=== PATIENT | male | born 1970 | race Native Hawaiian/Other Pacific Islander ===

== ENCOUNTER 2017-07-06 11:53 | Observation (INO) | payer OTHER ==
[2017-07-06] MEDS ORDERED: RX INFO: IV CONTRAST WAS GIVEN 1 EACH MISC MISCELLANE PRN (12:12)
[2017-07-06 12:18] LABS: Glucose,Whole Blood 278 mg/dL (75-99)
[2017-07-06 12:35] LABS: Basophils # (A) 0.1 k/uL (0-0.2); Basophils % (A) 1 %; Eosinophils # (A) 0.3 k/uL (0-0.7); Eosinophils % (A) 5 %; HCT 52.4 % (39.0-53.0); HGB 17.3 gm/dL (13.0-17.5); Lymphocytes # (A) 1.4 k/uL (1.0-4.8); Lymphocytes % (A) 23 %; MCH 27.1 pg (25.0-35.0); MCV 82.1 fL (80.0-100.0); Mean Platelet Volume 8.3; Monocytes # (A) 0.3 k/uL (0-1.0); Monocytes % (A) 6 %; Neutrophils # (A) 3.7 k/uL (1.3-7.7); Neutrophils % (A) 64 %; Platelet Count 158 k/uL (150-450); RBC 6.38 m/uL (4.30-5.90); RDW 15.3 % (11.5-15.5); WBC 5.8 k/uL (3.8-10.6)
[2017-07-06 12:45] LABS: ALT 114 U/L (21-72); AST 64 U/L (17-59); Albumin 4.2 g/dL (3.5-5.0); Alkaline Phosphatase 108 U/L (38-126); Anion Gap 12 mmol/L; Blood Urea Nitrogen 15 mg/dL (9-20); Calcium 9.6 mg/dL (8.4-10.2); Carbon Dioxide 24 mmol/L (22-30); Chloride 101 mmol/L (98-107); Glucose 277 mg/dL (74-99); Potassium 4.4 mmol/L (3.5-5.1); Sodium 137 mmol/L (137-145); Total Bilirubin 0.7 mg/dL (0.2-1.3); Total Protein 7.6 g/dL (6.3-8.2)
--- NOTE | 2017-07-06 12:48 | ED ---
General Adult HPI - General Chief complaint: Neuro Symptoms/Deficit Stated complaint: Facial numbness Time Seen by Provider: 07/06/17 12:06 Source: patient, RN notes reviewed Mode of arrival: wheelchair Limitations: no limitations - History of Present Illness Initial comments: 46-year-old male history diabetes presents for evaluation of right-sided facial numbness and weakness. Patient states he woke with these symptoms, but work as usual. Patient states he also had some right-sided neck pain which was sharp in nature and right shoulder pain. No central chest pain. No difficulty breathing. No nausea or vomiting. Patient has had some diaphoresis which is typical for him. Symptoms failed to improve throughout the morning, he presented for evaluation. Past medical history includes diabetes and obesity. - Related Data Home Medications Medication Instructions Recorded Confirmed Insulin Glargine [Lantus] 35 unit SQ DAILY 07/06/17 07/06/17 glipiZIDE [Glucotrol] 5 mg PO AC-BID 07/06/17 07/06/17 metFORMIN HCL [metFORMIN HCL ER] 1,000 mg PO AC-BID 07/06/17 07/06/17 Allergies Allergy/AdvReac Type Severity Reaction Status Date / Time guaifenesin AdvReac Rash/Hives Verified 07/06/17 13:16 Review of Systems ROS Statement: Those systems with pertinent positive or pertinent negative responses have been documented in the HPI. ROS Other: All systems not noted in ROS Statement are negative. Past Medical History Past Medical History: Diabetes Mellitus, Hyperlipidemia History of Any Multi-Drug Resistant Organisms: None Reported Past Surgical History: Orthopedic Surgery Additional Past Surgical History / Comment(s): left shoulder Past Psychological History: No Psychological Hx Reported Smoking Status: Never smoker Past Alcohol Use History: Occasional Past Drug Use History: None Reported General Exam Limitations: no limitations General appearance: alert, in no apparent distress Head exam: Present: atraumatic, normocephalic Eye exam: Present: normal appearance, PERRL, EOMI ENT exam: Present: normal exam, TM's normal bilaterally, normal external ear exam Neck exam: Present: normal inspection. Absent: tenderness, meningismus Respiratory exam: Present: normal lung sounds bilaterally. Absent: respiratory distress, wheezes, rales Cardiovascular Exam: Present: regular rate, normal rhythm GI/Abdominal exam: Present: soft. Absent: distended, tenderness, guarding Extremities exam: Present: normal inspection, normal capillary refill. Absent: pedal edema Back exam: Present: normal inspection, full ROM Neurological exam: Present: alert, oriented X3, other (NIH of 2, left-sided lower motor facial droop, and sensory deficit. No upper motor neuron weakness.) Psychiatric exam: Present: normal affect, normal mood Skin exam: Present: warm, dry, intact, diaphoretic. Absent: cyanosis Course Vital Signs 07/06/17 07/06/17 07/06/17 11:55 12:23 13:30 Temperature 97.7 F Pulse Rate 79 76 72 Respiratory 18 16 18 Rate Blood Pressure 171/101 154/99 144/90 O2 Sat by Pulse 98 96 96 Oximetry 07/06/17 14:17 Temperature Pulse Rate 74 Respiratory 16 Rate Blood Pressure 138/90 O2 Sat by Pulse 95 Oximetry EKG Findings - EKG Comments: EKG Findings:: EKG shows normal sinus rhythm, ventricular rate 75, AK interval 146, castration 82, QTC 433, no signs of arrhythmia, or ischemia Medical Decision Making - Medical Decision Making 46-year-old presenting with right-sided facial numbness and weakness. Patient has right-sided facial droop and sensory deficit on the right, there is no involvement of the forehead. CT is obtained, negative for acute intracranial [place], CT angiography is negative. Chest x-ray shows no acute findings. Laboratory studies are significant only for elevated blood glucose, patient does have history diabetes. Patient has had some right ear pain and some URI symptoms. 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 Case discussed with Dr. Osuna. Patient will be admitted for neurology evaluation. He is treated for both Villatoro' s palsy with prednisone and aspirin for possible CVA. Patient did receive CT angiography, therefore carotid ultrasound will be held at this time. - Lab Data Result diagrams: 07/06/17 12:23 07/06/17 12:23 Lab Results 07/06/17 07/06/17 07/06/17 Range/Units 12:15 12:23 12:23 WBC 5.8 (3.8-10.6) k/uL RBC 6.38 H (4.30-5.90) m/uL Hgb 17.3 (13.0-17.5) gm/dL Hct 52.4 (39.0-53.0) % MCV 82.1 (80.0-100.0) fL MCH 27.1 (25.0-35.0) pg MCHC 33.0 (31.0-37.0) g/dL RDW 15.3 (11.5-15.5) % Plt Count 158 (150-450) k/uL Neutrophils % 64 % Lymphocytes % 23 % Monocytes % 6 % Eosinophils % 5 % Basophils % 1 % Neutrophils # 3.7 (1.3-7.7) k/uL Lymphocytes # 1.4 (1.0-4.8) k/uL Monocytes # 0.3 (0-1.0) k/uL Eosinophils # 0.3 (0-0.7) k/uL Basophils # 0.1 (0-0.2) k/uL PT (9.0-12.0) sec INR (<1.2) APTT (22.0-30.0) sec Sodium (137-145) mmol/L Potassium (3.5-5.1) mmol/L Chloride (98-107) mmol/L Carbon Dioxide (22-30) mmol/L Anion Gap mmol/L BUN (9-20) mg/dL Creatinine (0.66-1.25) mg/dL Est GFR (MDRD) Af Amer (>60 ml/min/1.73 sqM) Est GFR (MDRD) Non-Af (>60 ml/min/1.73 sqM) Glucose (74-99) mg/dL POC Glucose (mg/dL) 278 H (75-99) mg/dL POC Glu First Assistant ID Bradford Pollard Calcium (8.4-10.2) mg/dL Total Bilirubin (0.2-1.3) mg/dL AST (17-59) U/L ALT (21-72) U/L Alkaline Phosphatase (38-126) U/L Total Creatine Kinase 146 (55-170) U/L CK-MB (CK-2) 0.9 (0.0-2.4) ng/mL CK-MB (CK-2) Rel Index 0.6 Troponin I <0.012 (0.000-0.034) ng/mL Total Protein (6.3-8.2) g/dL Albumin (3.5-5.0) g/dL 07/06/17 07/06/17 Range/Units 12:23 12:23 WBC (3.8-10.6) k/uL RBC (4.30-5.90) m/uL Hgb (13.0-17.5) gm/dL Hct (39.0-53.0) % MCV (80.0-100.0) fL MCH (25.0-35.0) pg MCHC (31.0-37.0) g/dL RDW (11.5-15.5) % Plt Count (150-450) k/uL Neutrophils % % Lymphocytes % % Monocytes % % Eosinophils % % Basophils % % Neutrophils # (1.3-7.7) k/uL Lymphocytes # (1.0-4.8) k/uL Monocytes # (0-1.0) k/uL Eosinophils # (0-0.7) k/uL Basophils # (0-0.2) k/uL PT 10.0 (9.0-12.0) sec INR 1.0 (<1.2) APTT 23.0 (22.0-30.0) sec Sodium 137 (137-145) mmol/L Potassium 4.4 (3.5-5.1) mmol/L Chloride 101 (98-107) mmol/L Carbon Dioxide 24 (22-30) mmol/L Anion Gap 12 mmol/L BUN 15 (9-20) mg/dL Creatinine 0.70 (0.66-1.25) mg/dL Est GFR (MDRD) Af Amer >60 (>60 ml/min/1.73 sqM) Est GFR (MDRD) Non-Af >60 (>60 ml/min/1.73 sqM) Glucose 277 H (74-99) mg/dL POC Glucose (mg/dL) (75-99) mg/dL POC Glu First Assistant ID Calcium 9.6 (8.4-10.2) mg/dL Total Bilirubin 0.7 (0.2-1.3) mg/dL AST 64 H (17-59) U/L ALT 114 H (21-72) U/L Alkaline Phosphatase 108 (38-126) U/L Total Creatine Kinase (55-170) U/L CK-MB (CK-2) (0.0-2.4) ng/mL CK-MB (CK-2) Rel Index Troponin I (0.000-0.034) ng/mL Total Protein 7.6 (6.3-8.2) g/dL Albumin 4.2 (3.5-5.0) g/dL Disposition Clinical Impression: Cerebrovascular accident Disposition: ADMITTED IP TO THIS HOSP Condition: Stable Referrals: Silvano Haile DO [Primary Care Provider] - 1-2 days Decision to Admit Reason: Admit from EC Decision Date: 07/06/17 Decision Time: 15:21
[2017-07-06 12:54] LABS: Creatine Kinase 146 U/L (55-170)
[2017-07-06 13:06] LABS: Creatine Kinase MB 0.9 ng/mL (0.0-2.4); Troponin I <0.012 ng/mL (0.000-0.034)
--- NOTE | 2017-07-06 14:34 | CT ---
EXAMINATION TYPE: CT brain wo con DATE OF EXAM: 07/06/2017 COMPARISON: NONE HISTORY: Rt facial numbness CT DLP: 1064.5 mGycm. Automated Exposure Control for Dose Reduction was Utilized. TECHNIQUE: CT scan of the head is performed without contrast. FINDINGS: There is no acute intracranial hemorrhage, mass effect, or midline shift identified. The ventricles and sulci are within normal limits in size. The globes are intact and the visualized sin uses are clear. Probable choroidal fissure cyst present on the right. There is a partially empty sell a. IMPRESSION: No acute intracranial hemorrhage, mass effect, or midline shift is seen.
--- NOTE | 2017-07-06 14:35 | XR ---
EXAMINATION TYPE: XR chest 2V DATE OF EXAM: 07/06/2017 COMPARISON: NONE HISTORY: Right-sided facial numbness and weakness. Right neck and shoulder pain. TECHNIQUE: Frontal and lateral views of the chest are obtained. FINDINGS: There is no focal air space opacity, pleural effusion, or pneumothorax seen. The cardiac silhouette size is within normal limits. The osseous structures are intact. On the lateral image pu lmonary vasculature is accentuated by the low lung volumes. IMPRESSION: No acute cardiopulmonary process.
--- NOTE | 2017-07-06 14:43 | CT ---
EXAMINATION TYPE: CT angio head neck DATE OF EXAM: 07/06/2017 HISTORY: Rt facial numbness COMPARISON: NONE CT DLP: 455.3 mGycm. Automated Exposure Control for Dose Reduction was Utilized. TECHNIQUE: CTA scan of the neck is performed with IV Contrast, patient injected with 65 mL of Omnipa que 350, axial images are obtained, coronal and sagittal reformatted images are reviewed. Three-D rec onstructed images are created on an independent workstation and reviewed. FINDINGS: Carotid/Vascular Structures: There is a two-vessel arch. Thoracic aorta, left and right common caroti d, innominate, left and right subclavian arteries are patent. Internal and external carotid arteries are patent, there is no evident filling defect or stenosis. Vertebral arteries are patent, left verte bral artery is dominant. No aneurysm. No vascular malformation evident. Basilar artery is patent. Intracranial internal carotid arteries are patent. Other: Degenerative disc changes are present in the visualized spine. IMPRESSION: No significant abnormality is seen.
[2017-07-06] MEDS ORDERED: ASPIRIN 325 MG TAB PO STA (15:06)
[2017-07-06] MEDS ORDERED: predniSONE 50 MG TAB PO STA (15:07)
[2017-07-06 17:13] LABS: Glucose,Whole Blood 179 mg/dL (75-99)
[2017-07-06] MEDS: INSULIN ASPART 100 UNIT/ML 1 ML 10 ML VIAL SQ SCH ×2 (18:54→21:52)
--- NOTE | 2017-07-06 19:07 | P.CNNES ---
History of Present Illness Consult date: 07/06/17 Reason for Consult: Patient being evaluated for right-sided facial weakness and numbness. History of Present Illness: This patient is a 46-year-old right-handed white male who apparently woke up this morning and noticed some right-sided facial numbness. At about the same time in the morning as he was getting ready for work he found that due to the weather conditions his work was canceled. He was getting ready to get up and start his day when he noticed in the mere in the bathroom that he had some right -sided facial droop. The numbness also continued and he was concern. He was also noticing difficulty with pain behind the right retroauricular region. He described it as a moderate degree of discomfort. There was also pain in his right shoulder and neck area. The patient apparently was advised to go to the emergency room. He decided to come in for further evaluation today. He was seen in the ER by Dr. Felix. His assessment was question of possible right- sided Montague's palsy versus stroke. He was sent for a computed tomography scan of the brain which revealed no acute intracranial hemorrhage or mass effect. No midline shift was seen. Patient was advised admission to the hospital for close monitoring. His only pertinent medical history is that of diabetes mellitus. He has had it for 2 years. He states his blood sugars have been under fairly good control. The patient was admitted to the hospital for further evaluation. Neurology was consulted for further assessment. Patient was evaluated today on the medical floor. He does have decreased blink in his right eyelid. He is able to for over his forehead but it appears weaker than on the left side. When he drinks fluid there is some drooling from the right angle of the mouth. Once again his rapid eye blink showed decreased blink response on the right side. There is no Montague's phenomenon noted today. The patient states that his symptoms came on suddenly this morning. He did not have this yesterday. Dr. Felix did discuss the case today over the phone and the results of his computed tomography scan of the brain which was negative as well as a CTA of the head and neck also was reported negative. The patient mentions also he has noted excessive tearing from his right eye. 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 We would also recommend that an MRI of the brain be done to rule out any possibility of brainstem ischemia. We recommend to start this patient on Valtrex 1000 mg by mouth 3 times a day for 7 days. He is already on prednisone 50 mg daily as well. We have recommended that he use artificial tears for the right eye as well as a eyepatch at night while sleeping. Patient has no previous history of Montague's palsy. We have recommended admission for possible MRI of the brain for further evaluation of possible stroke as well. If his MRI of the brain is negative tomorrow he may be considered for discharge home tomorrow with follow-up in the outpatient neurology clinic. We've discussed his findings today with the patient in detail. As noted his current findings do suggest a partial Montague's palsy on the right. We however would recommend this MRI of the brain to be done tomorrow as well to rule out brainstem ischemia. This seems to be less likely given his current findings. We will start him on the combination of Valtrex and prednisone and monitors response. The patient was examined today on the medical floor. Neurology is now been consulted for further evaluation and recommendations. Review of Systems Constitutional: Denies chills, Denies fever Eyes: right discharge, denies blurred vision, denies pain Ears, nose, mouth and throat: Denies headache, Denies sore throat Cardiovascular: Denies chest pain, Denies shortness of breath Respiratory: Denies cough Gastrointestinal: Denies abdominal pain, Denies diarrhea, Denies nausea, Denies vomiting Musculoskeletal: Denies myalgias Integumentary: Denies pruritus, Denies rash Neurological: Denies numbness, Denies weakness Psychiatric: Denies anxiety, Denies depression Endocrine: Denies fatigue, Denies weight change Past Medical History Past Medical History: Diabetes Mellitus, Hyperlipidemia History of Any Multi-Drug Resistant Organisms: None Reported Past Surgical History: Orthopedic Surgery Additional Past Surgical History / Comment(s): left shoulder Past Psychological History: No Psychological Hx Reported Smoking Status: Never smoker Past Alcohol Use History: Occasional Past Drug Use History: None Reported - Past Family History Father Family Medical History: Hypertension Mother Family Medical History: Hypertension Medications and Allergies Home Medications Medication Instructions Recorded Confirmed Type Insulin Glargine [Lantus] 35 unit SQ DAILY 07/06/17 07/06/17 History glipiZIDE [Glucotrol] 5 mg PO AC-BID 07/06/17 07/06/17 History metFORMIN HCL [metFORMIN HCL ER] 1,000 mg PO AC-BID 07/06/17 07/06/17 History Allergies Allergy/AdvReac Type Severity Reaction Status Date / Time guaifenesin AdvReac Rash/Hives Verified 07/06/17 13:16 Physical Examination - Vital Signs Vital Signs: Vital Signs Temp Pulse Resp BP Pulse Ox 07/06/17 16:09 97.9 F 07/06/17 15:52 73 16 147/99 95 07/06/17 14:17 74 16 138/90 95 07/06/17 13:30 72 18 144/90 96 07/06/17 12:23 76 16 154/99 96 07/06/17 11:55 97.7 F 79 18 171/101 98 Intake and Output 07/06/17 07/06/17 07/06/17 06:59 14:59 22:59 Other: Weight 136.078 kg Patient Weight 07/07/17 06:59 Weight 136.078 kg - Constitutional General appearance: average body habitus, cooperative - EENT EENT: PERRL, mucous membranes moist - Respiratory Respiratory: lungs clear, normal breath sounds - Cardiovascular Cardiovascular: regular rate, normal S1, normal S2 Extremities: no peripheral edema bilaterally - Gastrointestinal Gastrointestinal: normoactive bowel sounds - Integumentary Integumentary: normal - Neurologic Cranial nerve examination: PERRL, EOMI, V1/V2/V3 grossly intact, face symmetric , intact gag reflex, intact corneal reflex, facial droop (Patient has mild right sided lower motor neuron facial weakness. Blink reflex is diminished on the right.), normal palatal elevation Speech examination: intact Sensorimotor examination: intact Motor examination - right side: 4/5: biceps, triceps, wrist flexion, wrist extension, blow off worker, hip flexors, knee extensors, dorsiflexion, toe extension (EHL) , plantarflexion Motor examination - left side: 4/5: biceps, triceps, wrist flexion, wrist extension, blow off worker, hip flexors, knee extensors, dorsiflexion, toe extension (EHL) , plantarflexion Detailed sensory examination: intact Reflex and gait examination: intact Reflexes: 1+: ankle, bicep, knee, tricep - Musculoskeletal Musculoskeletal: no pain - Psychiatric Psychiatric: mood/affect appropriate, cooperative Results - Laboratory Findings CBC and BMP: 07/06/17 12:23 07/06/17 12:23 Abnormal Lab Findings: Abnormal Labs 07/06/17 07/06/17 07/06/17 12:15 12:23 12:23 RBC 6.38 H Glucose 277 H POC Glucose (mg/dL) 278 H AST 64 H ALT 114 H Assessment and Plan (1) Right-sided Montague's palsy Current Visit: Yes Status: Acute Code(s): G51.0 - MONTAGUE'S PALSY SNOMED Code (s): 265366501 Plan: This patient is a 46-year-old right-handed male who was admitted to hospital with sudden onset of right-sided facial numbness and facial weakness early this morning when he had awakened. He looked in his mere in the bathroom and noted facial drooping on the right side. He was also complaining of numbness on the right side of the face as well as the post auricular region producing discomfort and pain. He decided to come to the emergency room where he was evaluated. He was seen in the ER by Dr. Felix. He was sent for computed tomography scan of the brain and CT angios of the head and neck. Both studies came back normal. Case was discussed with the ER physician and it was recommended for him to be admitted for further evaluation. His neurological examination today reveals possible early partial Montague's palsy on the right side. We have recommended an MRI of the brain for further evaluation to rule out brainstem ischemia. We are recommending start this patient on Valtrex and prednisone for 7-10 days. He is to use artificial tears to the right eye 3 times a day. We will also have him use an eye patch at night when sleeping to the right eyelid. We will await his MRI to be done and reviewed. If his MRI is negative he may be considered for discharge home tomorrow. We have discussed all of these findings in detail with the patient. He is in full agreement with our current treatment plan. His overall prognosis at this time remains fair. Time with Patient: Greater than 30
[2017-07-06] MEDS ORDERED: ARTIFICIAL TEARS-HYPROMELLOSE DROPS 15 ML BTL RIGHT EYE PRN (19:09)
[2017-07-06] MEDS: SODIUM CHLORIDE 0.9% 1,000 ML IV SCH (20:27)
[2017-07-06] MEDS: valACYclovir 500 MG TAB PO SCH (20:29)
[2017-07-06 21:16] LABS: Glucose,Whole Blood 269 mg/dL (75-99)
[2017-07-06 23:02] VITALS: RESP 18
[2017-07-07] MEDS: valACYclovir 500 MG TAB PO SCH ×2 (00:52→08:31)
[2017-07-07 03:36] LABS: Hemoglobin A1C 9.3 % (4.0-6.0)
[2017-07-07 05:59] LABS: Glucose,Whole Blood 184 mg/dL (75-99)
[2017-07-07] MEDS: SODIUM CHLORIDE 0.9% 1,000 ML IV SCH (06:08)
[2017-07-07] MEDS: INSULIN ASPART 100 UNIT/ML 1 ML 10 ML VIAL SQ SCH ×2 (06:48→12:56)
[2017-07-07 06:55] LABS: Basophils # (A) 0.1 k/uL (0-0.2); Basophils % (A) 1 %; Eosinophils # (A) 0.2 k/uL (0-0.7); Eosinophils % (A) 2 %; HCT 51.7 % (39.0-53.0); HGB 16.3 gm/dL (13.0-17.5); Lymphocytes # (A) 2.2 k/uL (1.0-4.8); Lymphocytes % (A) 25 %; MCH 27.2 pg (25.0-35.0); MCHC 31.5 g/dL (31.0-37.0); MCV 86.2 fL (80.0-100.0); Mean Platelet Volume 8.4; Monocytes # (A) 0.5 k/uL (0-1.0); Monocytes % (A) 5 %; Neutrophils # (A) 5.8 k/uL (1.3-7.7); Neutrophils % (A) 65 %; Platelet Count 176 k/uL (150-450); RBC 5.99 m/uL (4.30-5.90); RDW 15.5 % (11.5-15.5); WBC 8.8 k/uL (3.8-10.6)
[2017-07-07 07:18] LABS: Anion Gap 11 mmol/L; Blood Urea Nitrogen 15 mg/dL (9-20); Calcium 9.5 mg/dL (8.4-10.2); Carbon Dioxide 22 mmol/L (22-30); Chloride 106 mmol/L (98-107); Cholesterol 232 mg/dL (<200); Glucose 185 mg/dL (74-99); HDL Cholesterol 39 mg/dL (40-60); LDL Cholesterol,Calculated 149 mg/dL (0-99); Potassium 4.1 mmol/L (3.5-5.1); Sodium 139 mmol/L (137-145); Triglycerides 220 mg/dL (<150)
[2017-07-07] MEDS ORDERED: glipiZIDE 5 MG TAB PO SCH (07:30)
[2017-07-07] MEDS ORDERED: predniSONE 50 MG TAB PO SCH (09:00)
[2017-07-07] MEDS ORDERED: ASPIRIN 325 MG TAB PO SCH (09:00)
[2017-07-07] MEDS ORDERED: INSULIN DETEMIR 100 UNIT/ML 10 ML VIAL SQ SCH (09:00)
--- NOTE | 2017-07-07 10:22 | MR ---
EXAMINATION TYPE: MR brain wo con DATE OF EXAM: 07/07/2017 9:08 AM. COMPARISON: CT scan of the brain dated 07/06/2017. HISTORY: Right facial numbness. Technique: Multiplanar, multiecho imaging of the brain was obtained without intravenous contrast. FINDINGS: There is a partially empty sella. Midline structures are otherwise unremarkable. There is a normal craniocervical junction. Echoplanar diffusion imaging is normal. There are normal vascular flow voids. The orbits are normal. There is no evidence of a CP angle mass lesion. There is no acute focal lesion, mass effect or midline shift identified. I do not see evidence of int racranial blood. IMPRESSION: 1. NO ACUTE INTRACRANIAL ABNORMALITY. 2. PARTIALLY EMPTY SELLA.
[2017-07-07 11:23] LABS: Glucose,Whole Blood 212 mg/dL (75-99)
--- NOTE | 2017-07-07 11:52 | P.DS ---
Providers Date of admission: 07/06/17 15:14 Attending physician: Aroldo Malin Consults: 07/06/17 15:12 Consult Physician Urgent Consulting Provider: Josefa Osuna Consult Reason/Comments: CVA vs. bells Palsy Do you want consulting provider notified?: Yes [facility] Course: Please refer to my HPI Patient Condition at Discharge: Stable Plan - Discharge Summary Discharge Rx Participant: No New Discharge Prescriptions: New Artificial Tears-Hypromellose [Artificial Tear Drops] 1 drops BOTH EYES TID # 1 bottle methylPREDNISolone Dose Pack [Medrol Dose Pack] 4 mg PO DIRECTED #21 package valACYclovir [Valtrex] 1,000 mg PO TID #21 tab Continue metFORMIN HCL [metFORMIN HCL ER] 1,000 mg PO AC-BID glipiZIDE [Glucotrol] 5 mg PO AC-BID Insulin Glargine [Lantus] 35 unit SQ DAILY #0 Discharge Medication List glipiZIDE [Glucotrol] 5 mg PO AC-BID 07/06/17 [History] metFORMIN HCL [metFORMIN HCL ER] 1,000 mg PO AC-BID 07/06/17 [History] Artificial Tears-Hypromellose [Artificial Tear Drops] 1 drops BOTH EYES TID #1 bottle 07/07/17 [Rx] Insulin Glargine [Lantus] 35 unit SQ DAILY #0 07/07/17 [Rx] methylPREDNISolone Dose Pack [Medrol Dose Pack] 4 mg PO DIRECTED #21 package 07/07/17 [Rx] valACYclovir [Valtrex] 1,000 mg PO TID #21 tab 07/07/17 [Rx] Follow up Appointment(s)/Referral(s): Silvano Haile DO [Primary Care Provider] - 3 Days Discharge Disposition: HOME SELF-CARE
--- NOTE | 2017-07-07 11:52 | P.HPIM ---
History of Present Illness This patient is a 46-year-old male who apparently woke up this morning and noticed some right-sided facial numbness. He was getting ready to get up and start his day when he noticed in the mere in the bathroom that he had some right -sided facial droop and retroauricular pain. 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 On exam today patient does have weakness of the right frontal muscle weakness of the right face improved but still has some weakness unable to close his eyes consistent with Villatoro's palsy although patient underwent a CVA workup with an MRI which was negative CT angios the head and neck were negative patient does have history of diabetes mellitus and does have elevated LDL patient does have chronic elevation of liver enzymes which is being monitored and the clinic regarding his elevated LDL patient will follow-up in [place] clinic for that. Patient will be given prescription for Valtrex, prednisone and artificial tears for a week and will up titrate the Lantus temporarily as patient will not take his metformin tomorrow and patient will be on steroids and instructions was provided to the patient verbally and upon discharge and patient will be discharged today no other focal weakness was appreciated. Review of Systems REVIEW OF SYSTEMS: CONSTITUTIONAL: No fever, no malaise, no fatigue. HEENT: No recent visual problems or hearing problems. Denied any sore throat. CARDIOVASCULAR: No chest pain, orthopnea, PND, no palpitations, no syncope. PULMONARY: No shortness of breath, no cough, no hemoptysis. GASTROINTESTINAL: No diarrhea, no nausea, no vomiting, no abdominal pain. Normoactive bowel sounds. NEUROLOGICAL: No headaches, mentioned in HPI HEMATOLOGICAL: Denies any bleeding or petechiae. GENITOURINARY: Denies any burning micturition, frequency, or urgency. MUSCULOSKELETAL/RHEUMATOLOGICAL: Denies any joint pain, swelling, or any muscle pain. ENDOCRINE: Denies any polyuria or polydipsia. The rest of the 14-point review of systems is negative. Past Medical History Past Medical History: Diabetes Mellitus, Hyperlipidemia Additional Past Medical History / Comment(s): boarderline high bp not currently taking meds for it, kidney stone in past about 7 years ago. History of Any Multi-Drug Resistant Organisms: None Reported Past Surgical History: Orthopedic Surgery Additional Past Surgical History / Comment(s): left shoulder Past Anesthesia/Blood Transfusion Reactions: No Reported Reaction Past Psychological History: No Psychological Hx Reported Smoking Status: Never smoker Past Alcohol Use History: Occasional Past Drug Use History: None Reported - Past Family History Father Family Medical History: Hypertension Mother Family Medical History: Hypertension Medications and Allergies Home Medications Medication Instructions Recorded Confirmed Type glipiZIDE [Glucotrol] 5 mg PO AC-BID 07/06/17 07/06/17 History metFORMIN HCL [metFORMIN HCL ER] 1,000 mg PO AC-BID 07/06/17 07/06/17 History Artificial Tears-Hypromellose 1 drops BOTH EYES TID #1 bottle 07/07/17 Rx [Artificial Tear Drops] Insulin Glargine [Lantus] 35 unit SQ DAILY #0 07/07/17 07/06/17 Rx methylPREDNISolone Dose Pack 4 mg PO DIRECTED #21 package 07/07/17 Rx [Medrol Dose Pack] valACYclovir [Valtrex] 1,000 mg PO TID #21 tab 07/07/17 Rx Allergies Allergy/AdvReac Type Severity Reaction Status Date / Time guaifenesin AdvReac Rash/Hives Verified 07/06/17 13:16 Physical Exam Vitals: Vital Signs Temp Pulse Pulse Resp BP BP BP 07/07/17 08:00 97.3 F L 74 18 143/101 07/07/17 04:00 96.9 F L 82 18 142/93 07/07/17 00:00 98.0 F 94 18 123/94 07/06/17 20:00 98.4 F 85 18 147/75 07/06/17 16:20 96.7 F L 69 158/97 07/06/17 16:09 97.9 F 07/06/17 15:52 73 16 147/99 07/06/17 14:17 74 16 138/90 07/06/17 13:30 72 18 144/90 07/06/17 12:23 76 16 154/99 07/06/17 11:55 97.7 F 79 18 171/101 Pulse Ox 07/07/17 08:00 97 07/07/17 04:00 99 07/07/17 00:00 96 07/06/17 20:00 95 07/06/17 16:20 98 07/06/17 16:09 07/06/17 15:52 95 07/06/17 14:17 95 07/06/17 13:30 96 07/06/17 12:23 96 07/06/17 11:55 98 Intake and Output 07/06/17 07/07/17 07/07/17 22:59 06:59 14:59 Intake Total 400 240 Output Total 500 500 Balance 400 -500 -260 Intake: Oral 400 240 Output: Urine 500 500 Other: Weight 136.1 kg Results CBC & Chem 7: 07/07/17 05:48 07/07/17 05:48 Labs: Abnormal Lab Results - Last 24 Hours (Table) 07/06/17 07/06/17 07/06/17 Range/Units 12:15 12:23 12:23 RBC 6.38 H (4.30-5.90) m/uL Glucose 277 H (74-99) mg/dL POC Glucose (mg/dL) 278 H (75-99) mg/dL AST 64 H (17-59) U/L ALT 114 H (21-72) U/L Triglycerides (<150) mg/dL Cholesterol (<200) mg/dL LDL Cholesterol, Calc (0-99) mg/dL HDL Cholesterol (40-60) mg/dL 07/06/17 07/06/17 07/07/17 Range/Units 17:01 21:03 05:48 RBC (4.30-5.90) m/uL Glucose 185 H (74-99) mg/dL POC Glucose (mg/dL) 179 H 269 H (75-99) mg/dL AST (17-59) U/L ALT (21-72) U/L Triglycerides 220 H (<150) mg/dL Cholesterol 232 H (<200) mg/dL LDL Cholesterol, Calc 149 H (0-99) mg/dL HDL Cholesterol 39 L (40-60) mg/dL 07/07/17 07/07/17 07/07/17 Range/Units 05:48 05:57 11:14 RBC 5.99 H (4.30-5.90) m/uL Glucose (74-99) mg/dL POC Glucose (mg/dL) 184 H 212 H (75-99) mg/dL AST (17-59) U/L ALT (21-72) U/L Triglycerides (<150) mg/dL Cholesterol (<200) mg/dL LDL Cholesterol, Calc (0-99) mg/dL HDL Cholesterol (40-60) mg/dL Assessment and Plan Plan: -Right-sided facial weakness and some numbness numbness secondary to right- sided Villatoro's palsy management as mentioned above. -Hyperlipidemia: [facility] -Patient has chronically elevated mildly elevated liver enzymes secondary to probable nonalcoholic steatohepatitis [facility] all the workup is negative so far. -Type 2 diabetes mellitus with elevated blood sugars and type sugars are expected to be remain elevated because of systemic steroids he is going to be on and patient will hold off metformin for 48-72 hours as he received contrast for CT angios the head and neck.
[2017-07-07 12:02] LABS: ALT 94 U/L (21-72); AST 42 U/L (17-59); Albumin 3.5 g/dL (3.5-5.0); Alkaline Phosphatase 89 U/L (38-126); Total Bilirubin 0.5 mg/dL (0.2-1.3); Total Protein 6.6 g/dL (6.3-8.2)
[2017-07-07 12:49] VITALS: BP 132/86; PULSE 73; TEMP 97.6
--- NOTE | 2017-07-07 14:45 | P.PN ---
Subjective Progress Note Date: 07/07/17 This patient is a 46-year-old right-handed male who was admitted to hospital yesterday with symptoms of right facial numbness and possible early onset Montague' s palsy. Patient presented initially with filler feeder awakening and noticing facial droop and numbness on the right side of his face. He was brought into the emergency room yesterday and underwent a initial computed tomography scan of the brain which was negative. His neurological examination suggested partial Montague's palsy on the right side. We've recommended an MRI of the brain to rule out brainstem ischemia as a differential diagnosis. Patient was sent for MRI of the brain today which came back negative with no evidence of acute stroke. There is a partial empty sella. Patient was started on Valtrex yesterday for treatment of acute right-sided Montague's palsy. He is also on prednisone. With this MRI being negative he may be considered for discharge home today and should continue on Valtrex for 7 days. He is to continue to use eye drops to the right eye and patch the right eye when sleeping at night. We reviewed the results of the MRI today with the patient. He was also instructed on some simple facial exercises for the right face. He may follow-up in the outpatient neurology clinic in 2-3 weeks. Objective - Vital Signs Vital signs: Vital Signs Temp 97.3 F L 07/07/17 08:00 Pulse 74 07/07/17 08:00 Resp 18 07/07/17 08:00 BP 143/101 07/07/17 08:00 Pulse Ox 97 07/07/17 08:00 Intake & Output 07/06/17 07/07/17 07/07/17 18:59 06:59 18:59 Intake Total 400 240 Output Total 500 500 Balance 400 -500 -260 Weight 136.078 kg 136.1 kg Intake: Oral 400 240 Output: Urine 500 500 - Exam Physical examination: PHYSICAL EXAMINATION: Patient is resting comfortably in bed. VITAL SIGNS: Blood pressure is [139/93]. Heart rate is [74]. Respiration is [18] . Temperature is [97.3]. HEENT: Head is atraumatic, neck is supple, there were no carotid bruits. CHEST: Lungs are clear to auscultation and percussion. CARDIAC: S1, S2 normal rate and rhythm. There is no murmur. ABDOMEN: Soft and nontender. Bowel sounds are present. EXTREMITIES: There is no pedal edema. Peripheral pulses are present. Neurological examination: Patient has evidence of mild right facial asymmetry. Blink response is diminished on the right side. He is able to for both halves of his 4 head muscles. Remaining neurological examination is nonfocal. - Labs CBC & Chem 7: 07/07/17 05:48 07/07/17 05:48 Labs: Abnormal Lab Results - Last 24 Hours (Table) 07/06/17 07/06/17 07/06/17 Range/Units 12:15 12:23 12:23 RBC 6.38 H (4.30-5.90) m/uL Glucose 277 H (74-99) mg/dL POC Glucose (mg/dL) 278 H (75-99) mg/dL AST 64 H (17-59) U/L ALT 114 H (21-72) U/L Triglycerides (<150) mg/dL Cholesterol (<200) mg/dL LDL Cholesterol, Calc (0-99) mg/dL HDL Cholesterol (40-60) mg/dL 07/06/17 07/06/17 07/07/17 Range/Units 17:01 21:03 05:48 RBC (4.30-5.90) m/uL Glucose 185 H (74-99) mg/dL POC Glucose (mg/dL) 179 H 269 H (75-99) mg/dL AST (17-59) U/L ALT (21-72) U/L Triglycerides 220 H (<150) mg/dL Cholesterol 232 H (<200) mg/dL LDL Cholesterol, Calc 149 H (0-99) mg/dL HDL Cholesterol 39 L (40-60) mg/dL 07/07/17 07/07/17 07/07/17 Range/Units 05:48 05:57 11:14 RBC 5.99 H (4.30-5.90) m/uL Glucose (74-99) mg/dL POC Glucose (mg/dL) 184 H 212 H (75-99) mg/dL AST (17-59) U/L ALT (21-72) U/L Triglycerides (<150) mg/dL Cholesterol (<200) mg/dL LDL Cholesterol, Calc (0-99) mg/dL HDL Cholesterol (40-60) mg/dL Assessment and Plan (1) Right-sided Montague's palsy Status: Acute Code(s): G51.0 - MONTAGUE'S PALSY SNOMED Code(s): 794993985 Plan: This patient is a 46-year-old male who was admitted yesterday with symptoms of acute onset of right facial weakness and numbness. He underwent MRI of the brain today which came back negative for any evidence of acute stroke. His clinical findings are consistent with a right-sided Montague's palsy. He is to continue on Valtrex and prednisone for 7 days at the time of discharge. He may continue to use eye drops to the right eye 3 times a day with artificial tears. He is to cover and patch the right eye when sleeping at night. Patient may schedule a follow-up in the outpatient neurology clinic in 2-3 weeks. His prognosis should continue to improve with time. We've given some simple exercises that may also help the right facial muscles. His overall prognosis remains fair.
== END 2017-07-07 14:18 | disposition home or self-care (01) ==
LOC: EC 11:53 → 6SEL 15:14 → INTOOBSV 15:14 → 6SEL 15:52
PROVIDERS: ADMIT Internal Medicine; ATTEND Internal Medicine
DX: G51.0 Bell's palsy (principal); E78.5 Hyperlipidemia, unspecified; R74.8 Abnormal levels of other serum enzymes; E11.65 Type 2 diabetes mellitus with hyperglycemia; M54.2 Cervicalgia; M25.511 Pain in right shoulder; R03.0 Elevated blood-pressure reading, without diagnosis of hypertension; Z79.4 Long term (current) use of insulin; Z79.84 Long term (current) use of oral hypoglycemic drugs; Z88.8 Allergy status to other drugs, medicaments and biological substances; Z82.49 Family history of ischemic heart disease and other diseases of the circulatory system
CPT/HCPCS: 36415; 93005; 80061; 80053 ×2; 82550; 82553; 84484; 85025 ×2; 85610; 85730; 83036; 71046; 70496; 70450; 70498; 70551; 99285; G0378 ×2; Q9967; J7512 ×2

== ENCOUNTER 2018-01-16 08:02 | Emergency (ER) | payer OTHER ==
[2018-01-16] MEDS ORDERED: PANTOPRAZOLE 40 MG/10 ML VIAL IVP STA (08:21)
[2018-01-16] MEDS ORDERED: ONDANSETRON 4 MG/2 ML VIAL IVP STA (08:21)
[2018-01-16] MEDS ORDERED: SODIUM CHLORIDE 0.9% 1,000 ML IV STA ×2 (08:21)
[2018-01-16] MEDS ORDERED: KETOROLAC 30 MG/ML 1 ML VIAL IVP STA (08:21)
--- NOTE | 2018-01-16 08:24 | ED ---
Abdominal Pain HPI - General Chief Complaint: Abdominal Pain Stated Complaint: Upper Abd/Flank Pain Time Seen by Provider: 01/16/18 08:07 Source: patient, RN notes reviewed, old records reviewed Mode of arrival: ambulatory Limitations: no limitations - History of Present Illness Initial Comments: This Patient is a 39-year-old male presents emergency department today chief complaint of 3 days of right upper quadrant abdominal pain radiating towards his back. Patient states it started on Sunday evening after eating chicken wings. Patient reports that he had a dull ache over the past 3 days and occasionally be throbbing in nature. He does report some relief after taking ibuprofen and aspirin. Patient states that he has no significant cardiac or surgical history. Patient states the pain is worse sometimes with taking a deep breath. He does feel slightly nauseated. He denies any fever or chills. No nausea or vomiting. Denies any urinary symptoms or changes in stool. - Related Data Home Medications Medication Instructions Recorded Confirmed glipiZIDE [Glucotrol] 5 mg PO AC-BID 07/06/17 01/16/18 metFORMIN HCL [metFORMIN HCL ER] 1,000 mg PO AC-BID 07/06/17 01/16/18 Artificial Tears-Hypromellose 1 drops BOTH EYES TID PRN 01/16/18 01/16/18 [Artificial Tear Drops] Ibuprofen [Motrin Ib] 600 mg PO Q6H PRN 01/16/18 01/16/18 Previous Rx's Medication Instructions Recorded Insulin Glargine [Lantus] 35 unit SQ DAILY #0 07/07/17 Ibuprofen 600 mg PO TID #20 tablet 01/16/18 traMADol HCl [Ultram] 50 mg PO Q6HR PRN 3 Days #12 tab 01/16/18 Allergies Allergy/AdvReac Type Severity Reaction Status Date / Time guaifenesin AdvReac Rash/Hives Verified 01/16/18 09:31 Review of Systems ROS Statement: Those systems with pertinent positive or pertinent negative responses have been documented in the HPI. ROS Other: All systems not noted in ROS Statement are negative. Past Medical History Past Medical History: Diabetes Mellitus, Hyperlipidemia Additional Past Medical History / Comment(s): boarderline high bp not currently taking meds for it, kidney stone in past about 7 years ago. History of Any Multi-Drug Resistant Organisms: None Reported Past Surgical History: Orthopedic Surgery Additional Past Surgical History / Comment(s): left shoulder Past Anesthesia/Blood Transfusion Reactions: No Reported Reaction Past Psychological History: No Psychological Hx Reported Smoking Status: Current some day smoker Past Alcohol Use History: Occasional Past Drug Use History: None Reported - Past Family History Father Family Medical History: Hypertension Mother Family Medical History: Hypertension General Exam - General Exam Comments Initial Comments: This is a 47-year-old male. Alert and oriented. No significant distress. Limitations: no limitations General appearance: alert, in no apparent distress Head exam: Present: atraumatic, normocephalic, normal inspection Eye exam: Present: normal appearance ENT exam: Present: normal exam Neck exam: Present: normal inspection. Absent: tenderness, meningismus, lymphadenopathy Respiratory exam: Present: normal lung sounds bilaterally. Absent: respiratory distress, wheezes, rales, rhonchi, stridor Cardiovascular Exam: Present: regular rate, normal rhythm, normal heart sounds. Absent: systolic murmur, diastolic murmur, rubs, gallop, clicks GI/Abdominal exam: Present: soft, tenderness (The right upper quadrant tenderness to palpation.), normal bowel sounds. Absent: distended, guarding, rebound, rigid Extremities exam: Present: normal inspection, full ROM, normal capillary refill. Absent: tenderness, pedal edema, joint swelling, calf tenderness Back exam: Present: normal inspection Neurological exam: Present: alert, oriented X3, CN II-XII intact Psychiatric exam: Present: normal affect, normal mood Skin exam: Present: warm, dry, intact, normal color. Absent: rash Course Vital Signs 01/16/18 08:05 Temperature 97.9 F Pulse Rate 78 Respiratory 20 Rate Blood Pressure 158/90 O2 Sat by Pulse 98 Oximetry - Reevaluation(s) Reevaluation #1: 01/16/18 09:39 Patient is to be reevaluated resting comfortably in bed. Disc reports mild pain. Informed of lab results elevated liver enzymes. He reports that he's been told this before. No vomiting episodes. Otherwise stable. He does report that his pain now is a 4 out of 10. Medical Decision Making - Medical Decision Making 47-year-old male presents per minute or tingling of right upper quadrant abdominal pain. At this time patient's lab work was also unremarkable this has elevation of liver enzymes. Bilirubin was normal. Urinalysis is positive for ketones and some bacteria. We will do urine culture. I did do a right upper quadrant now chilled. Evidence of hepatomegaly. Patient gallbladder was reviewed and normal. Weight is concerned for possibility of kidney stones with some trace blood in the urine. To do a CT abdomen and pelvis without contrast. Which was negative for any acute issues aside hepatomegaly. Patient's acute hepatitis panel was added. At this time patient's pain seems to be related medically. Possibility of gallbladder resection. Recommended HIDA scan. I discussed clear liquid diet, will discharge him with anti-inflammatory medicine and short course of tramadol. Discussed the area all questions answered return parameters were discussed. - Lab Data Result diagrams: 01/16/18 08:28 01/16/18 08:28 Lab Results 01/16/18 01/16/18 01/16/18 Range/Units 08:28 08:28 08:28 WBC 6.3 (3.8-10.6) k/uL RBC 6.18 H (4.30-5.90) m/uL Hgb 16.7 (13.0-17.5) gm/dL Hct 50.6 (39.0-53.0) % MCV 81.9 (80.0-100.0) fL MCH 27.0 (25.0-35.0) pg MCHC 32.9 (31.0-37.0) g/dL RDW 14.0 (11.5-15.5) % Plt Count 154 (150-450) k/uL Neutrophils % 65 % Lymphocytes % 20 % Monocytes % 7 % Eosinophils % 5 % Basophils % 1 % Neutrophils # 4.1 (1.3-7.7) k/uL Lymphocytes # 1.3 (1.0-4.8) k/uL Monocytes # 0.5 (0-1.0) k/uL Eosinophils # 0.3 (0-0.7) k/uL Basophils # 0.0 (0-0.2) k/uL PT 10.1 (9.0-12.0) sec INR 1.0 (<1.2) APTT 23.0 (22.0-30.0) sec Sodium 137 (137-145) mmol/L Potassium 4.6 (3.5-5.1) mmol/L Chloride 104 (98-107) mmol/L Carbon Dioxide 25 (22-30) mmol/L Anion Gap 8 mmol/L BUN 16 (9-20) mg/dL Creatinine 0.78 (0.66-1.25) mg/dL Est GFR (CKD-EPI)AfAm >90 (>60 ml/min/1.73 sqM) Est GFR (CKD-EPI)NonAf >90 (>60 ml/min/1.73 sqM) Glucose 229 H (74-99) mg/dL Calcium 9.4 (8.4-10.2) mg/dL Total Bilirubin 1.0 (0.2-1.3) mg/dL AST 84 H (17-59) U/L ALT 139 H (21-72) U/L Alkaline Phosphatase 101 (38-126) U/L Troponin I (0.000-0.034) ng/mL Total Protein 7.0 (6.3-8.2) g/dL Albumin 4.1 (3.5-5.0) g/dL Amylase 64 (30-110) U/L Lipase 105 (23-300) U/L Urine Color Urine Appearance (Clear) Urine pH (5.0-8.0) Ur Specific [place] (1.001-1.035) Urine Protein (Negative) Urine Glucose (UA) (Negative) Urine Ketones (Negative) Urine Blood (Negative) Urine Nitrite (Negative) Urine Bilirubin (Negative) Urine Urobilinogen (<2.0) mg/dL Ur Leukocyte Esterase (Negative) Urine RBC (0-5) /hpf Urine WBC (0-5) /hpf Amorphous Sediment (None) /hpf Urine Bacteria (None) /hpf Urine Mucus (None) /hpf 01/16/18 01/16/18 Range/Units 08:28 08:45 WBC (3.8-10.6) k/uL RBC (4.30-5.90) m/uL Hgb (13.0-17.5) gm/dL Hct (39.0-53.0) % MCV (80.0-100.0) fL MCH (25.0-35.0) pg MCHC (31.0-37.0) g/dL RDW (11.5-15.5) % Plt Count (150-450) k/uL Neutrophils % % Lymphocytes % % Monocytes % % Eosinophils % % Basophils % % Neutrophils # (1.3-7.7) k/uL Lymphocytes # (1.0-4.8) k/uL Monocytes # (0-1.0) k/uL Eosinophils # (0-0.7) k/uL Basophils # (0-0.2) k/uL PT (9.0-12.0) sec INR (<1.2) APTT (22.0-30.0) sec Sodium (137-145) mmol/L Potassium (3.5-5.1) mmol/L Chloride (98-107) mmol/L Carbon Dioxide (22-30) mmol/L Anion Gap mmol/L BUN (9-20) mg/dL Creatinine (0.66-1.25) mg/dL Est GFR (CKD-EPI)AfAm (>60 ml/min/1.73 sqM) Est GFR (CKD-EPI)NonAf (>60 ml/min/1.73 sqM) Glucose (74-99) mg/dL Calcium (8.4-10.2) mg/dL Total Bilirubin (0.2-1.3) mg/dL AST (17-59) U/L ALT (21-72) U/L Alkaline Phosphatase (38-126) U/L Troponin I <0.012 (0.000-0.034) ng/mL Total Protein (6.3-8.2) g/dL Albumin (3.5-5.0) g/dL Amylase (30-110) U/L Lipase (23-300) U/L Urine Color Yellow Urine Appearance Clear (Clear) Urine pH 6.0 (5.0-8.0) Ur Specific [place] 1.019 (1.001-1.035) Urine Protein 2+ H (Negative) Urine Glucose (UA) 3+ H (Negative) Urine Ketones Trace H (Negative) Urine Blood Trace H (Negative) Urine Nitrite Negative (Negative) Urine Bilirubin Negative (Negative) Urine Urobilinogen <2.0 (<2.0) mg/dL Ur Leukocyte Esterase Negative (Negative) Urine RBC 2 (0-5) /hpf Urine WBC 2 (0-5) /hpf Amorphous Sediment Rare H (None) /hpf Urine Bacteria Rare H (None) /hpf Urine Mucus Rare H (None) /hpf 01/16/18 08:34 EKG performed 820 and shows normal sinus rhythm. Normal EKG. Ventricular rate 66 bpm. Verbal 164. QRS duration 82. QT QTc is 410/429 ms. - Radiology Data Radiology results: report reviewed Mild fatty infiltration with hepatomegaly. Nonobstructing inferior pole right renal stone. Gallbladder appears within normal limits. Normal appendix. Medical he with moderate to severe steatosis. Correlate with LFTs, lipid profile Patient risk factors. Nonobstructive right lower pole renal calculus. Circumferential bladder wall thickening may relate to nondistention. Correlate to exclude cystitis. Disposition Clinical Impression: Hepatomegaly, Right upper quadrant abdominal pain Disposition: HOME SELF-CARE Condition: Good Instructions: Abdominal Pain (ED), Non-Alcoholic Fatty Liver Disease (ED) Additional Instructions: Do clear liquid diet. Take a temperature maternal medicine and pain medicine as needed. Return to emergency department if any alarming signs or symptoms occur. Patient to follow-up promptly with PCP and GI doctor. Prescriptions: Ibuprofen 600 mg PO TID #20 tablet traMADol HCl [Ultram] 50 mg PO Q6HR PRN 3 Days #12 tab PRN Reason: Pain Is patient prescribed a controlled substance at d/c from ED?: Yes When asked, does pt state using other controlled substances?: No If prescribed controlled substance>3 days was MAPS reviewed?: Prescribed <3 Days If opioid is for acute pain is fill amount 7 days or less?: Yes If Rx opioid, was Start Talking consent form obtained?: Yes Referrals: [facility],Clinic [Primary Care Provider] - 1-2 days Paola Esparza MD [STAFF PHYSICIAN] - 1-2 days Time of Disposition: 11:13
[2018-01-16 08:49] LABS: Basophils % (A) 1 %; Eosinophils # (A) 0.3 k/uL (0-0.7); Eosinophils % (A) 5 %; HCT 50.6 % (39.0-53.0); HGB 16.7 gm/dL (13.0-17.5); Lymphocytes # (A) 1.3 k/uL (1.0-4.8); Lymphocytes % (A) 20 %; MCHC 32.9 g/dL (31.0-37.0); MCV 81.9 fL (80.0-100.0); Mean Platelet Volume 7.1; Monocytes # (A) 0.5 k/uL (0-1.0); Monocytes % (A) 7 %; Neutrophils # (A) 4.1 k/uL (1.3-7.7); Neutrophils % (A) 65 %; Platelet Count 154 k/uL (150-450); RBC 6.18 m/uL (4.30-5.90); WBC 6.3 k/uL (3.8-10.6)
[2018-01-16 08:58] LABS: ALT 139 U/L (21-72); AST 84 U/L (17-59); Albumin 4.1 g/dL (3.5-5.0); Alkaline Phosphatase 101 U/L (38-126); Amylase 64 U/L (30-110); Anion Gap 8 mmol/L; Blood Urea Nitrogen 16 mg/dL (9-20); Calcium 9.4 mg/dL (8.4-10.2); Carbon Dioxide 25 mmol/L (22-30); Chloride 104 mmol/L (98-107); Glucose 229 mg/dL (74-99); Lipase 105 U/L (23-300); Potassium 4.6 mmol/L (3.5-5.1); Sodium 137 mmol/L (137-145)
[2018-01-16 08:59] LABS: Prothrombin Time 10.1 sec (9.0-12.0)
[2018-01-16 09:01] LABS: Amorphous Sediment,Urine Rare /hpf; Appearance,Urine Clear (Clear); Bacteria,Urine Rare /hpf; Bilirubin,Urine Negative (Negative); Blood,Urine Trace (Negative); Color,Urine Yellow; Glucose,Urine (UA) 3+ (Negative); Ketones,Urine Trace (Negative); Leukocyte Esterase,Urine Negative (Negative); Mucus,Urine Rare /hpf; Nitrite,Urine Negative (Negative); Protein,Urine 2+ (Negative); RBC,Urine 2 /hpf (0-5); Specific Gravity,Urine 1.019 (1.001-1.035); Urobilinogen,Urine <2.0 mg/dL (<2.0); WBC,Urine 2 /hpf (0-5)
--- NOTE | 2018-01-16 09:42 | US ---
EXAMINATION TYPE: US gallbladder DATE OF EXAM: 01/16/2018 COMPARISON: NONE CLINICAL HISTORY: Pain. EXAM MEASUREMENTS: Liver Length: 22.0 cm compatible with hepatomegaly. Gallbladder Wall: 0.2 cm CBD: 0.5 cm Right Kidney: 16.2 x 6.9 x 6.1 cm Patient of large body habitus with large abdomen, limiting study. Extensive overlying bowel gas. Pancreas: Obscured by bowel gas Liver: unable to fully penetrate, hepatomegaly Gallbladder: wnl, some probable focal fatty sparing adjacent to gallbladder Evidence for sonographic Sandoval's sign: no CBD: wnl Right Kidney: kidney stone measuring 2.1 x 0.9 x 0.8cm, enlarged IMPRESSION: 1. Mild fatty infiltration with hepatomegaly. 2. Nonobstructing inferior pole right renal stone. 3. Gallbladder appears within normal limits.
[2018-01-16] MEDS ORDERED: MORPHINE SULFATE 4 MG/ML SYRINGE IVP STA (09:48)
--- NOTE | 2018-01-16 10:24 | CT ---
EXAMINATION TYPE: CT abdomen pelvis wo con DATE OF EXAM: 01/16/2018 COMPARISON: Correlation ultrasound same day HISTORY: 47-year-old male with pain RUQ pain CT DLP: 1222 mGycm. Automated exposure control for dose reduction was used. TECHNIQUE: Contiguous axial scanning of the abdomen and pelvis without IV contrast. Coronal and sagit raffaele reconstructions performed. FINDINGS: Heart normal size without pericardial effusion. Lung bases clear without pleural effusion. Liver enlarged measuring 21.7 cm. There is at least moderate to severe fatty infiltration of the live r with low-attenuation areas of focal fatty sparing along the gallbladder fossa and gladys hepatis. Gallbladder, adrenal glands, left kidney, spleen with hilar splenule, and pancreas shows no gross abn ormally. 9 mm nonobstructive calculus lower pole right kidney. No dilated small bowel, free fluid, or free air. No mesenteric or retroperitoneal lymphadenopathy. Normal appendix. Scattered mild stool. No pericolonic inflammatory change. Circumferential bladder wall thickening may relate to incomplete distention. Pelvic phleboliths. No a bnormal fluid collection the pelvis or pelvic lymphadenopathy. Bones: Mild degenerative changes at the hips. Focal 1.9 cm mixed sclerotic and lucent lesion within t he medial left iliac bone show some internal fat density suggesting a benign etiology such as a fibro -osseous lesion. No osseous destructive process. Degenerative disc disease mid to lower lumbar spine along with facet arthropathy. IMPRESSION: 1. Normal appendix. 2. Hepatomegaly (21.7 cm) with moderate to severe hepatic steatosis. Correlate with LFTs, lipid prof ile, and patient risk factors. 3. A nonobstructive right lower pole renal calculus. 4. Circumferential bladder wall thickening may relate to nondistention. Correlate to exclude cystiti s.
[2018-01-16 11:27] VITALS: BP 179/85; PULSE 67; RESP 18
[2018-01-16 11:30] VITALS: TEMP 98.4
[2018-01-16 12:14] LABS: Hepatitis A AB IgM Index 0.02; Hepatitis A Antibody IgM NEGATIVE
[2018-01-16 19:32] LABS: Hepatitis B Core IgM Non-Reactive (Non-Reactive)
== END 2018-01-16 11:30 | disposition home or self-care (01) ==
LOC: EC 08:02
DX: R16.0 Hepatomegaly, not elsewhere classified (principal); R94.5 Abnormal results of liver function studies; E11.9 Type 2 diabetes mellitus without complications; F17.200 Nicotine dependence, unspecified, uncomplicated; Z79.84 Long term (current) use of oral hypoglycemic drugs; Z88.8 Allergy status to other drugs, medicaments and biological substances
CPT/HCPCS: 36415; 93005; 80053; 80074; 82150; 83690; 84484; 85025; 85610; 85730; 81001; 87040; 87086; 76705; 74176; 99285; 96374; 96375 ×3; 96361 ×3; J2270; J2405; J1885; C9113

== ENCOUNTER 2018-01-18 12:34 | Emergency (ER) | payer OTHER ==
[2018-01-18 13:14] VITALS: RESP 18
[2018-01-18] MEDS ORDERED: valACYclovir 500 MG TAB PO STA (14:02)
[2018-01-18] MEDS ORDERED: HYDROcodone/APAP 5-325MG 1 EACH TAB PO STA (14:02)
[2018-01-18] MEDS ORDERED: DEXAMETHASONE SOD PHOSPHATE 10 MG/ML 1 ML VIAL IM STA (14:02)
--- NOTE | 2018-01-18 14:06 | ED ---
General Adult HPI - General Chief complaint: Abdominal Pain Stated complaint: Abd pain Time Seen by Provider: 01/18/18 13:27 Source: patient, RN notes reviewed, old records reviewed Mode of arrival: ambulatory Limitations: no limitations - History of Present Illness Initial comments: This is a 47-year-old male the ER for evaluation of right-sided abdominal pain and right-sided flank pain. Patient states he was in the emergency room this week for similar pain. No nausea vomiting no fevers. No diarrhea. Patient states his pain is just increased. He has no recent travel history no sick contacts again no fevers. Patient also they develop rash as of today. - Related Data Home Medications Medication Instructions Recorded Confirmed glipiZIDE [Glucotrol] 5 mg PO AC-BID 07/06/17 01/18/18 Insulin Glargine,Hum.rec.anlog 10 unit SQ DAILY 01/18/18 01/18/18 [Lantus Solostar] metFORMIN HCL 1,000 mg PO BID 01/18/18 01/18/18 Previous Rx's Medication Instructions Recorded Lidocaine 5% Patch [Lidoderm] 1 patch TOPICAL DAILY #7 patch 01/18/18 predniSONE 50 mg PO DAILY #5 tab 01/18/18 valACYclovir HCL [Valtrex] 1,000 mg PO BID #20 tab 01/18/18 Allergies Allergy/AdvReac Type Severity Reaction Status Date / Time guaifenesin Allergy Rash/Hives Verified 01/18/18 13:48 Review of Systems ROS Statement: Those systems with pertinent positive or pertinent negative responses have been documented in the HPI. ROS Other: All systems not noted in ROS Statement are negative. Past Medical History Past Medical History: Diabetes Mellitus, Hyperlipidemia Additional Past Medical History / Comment(s): boarderline high bp , kidney stone History of Any Multi-Drug Resistant Organisms: None Reported Past Surgical History: Orthopedic Surgery Additional Past Surgical History / Comment(s): left shoulder Past Anesthesia/Blood Transfusion Reactions: No Reported Reaction Past Psychological History: No Psychological Hx Reported Smoking Status: Former smoker Past Alcohol Use History: Occasional Past Drug Use History: None Reported - Past Family History Father Family Medical History: Hypertension Mother Family Medical History: Hypertension General Exam - General Exam Comments Initial Comments: Zoster rash under right breast Limitations: no limitations General appearance: alert, in no apparent distress Head exam: Present: atraumatic, normocephalic, normal inspection Eye exam: Present: normal appearance, PERRL, EOMI. Absent: scleral icterus, conjunctival injection, periorbital swelling ENT exam: Present: normal exam, mucous membranes moist Neck exam: Present: normal inspection. Absent: tenderness, meningismus, lymphadenopathy Respiratory exam: Present: normal lung sounds bilaterally. Absent: respiratory distress, wheezes, rales, rhonchi, stridor Cardiovascular Exam: Present: regular rate, normal rhythm, normal heart sounds. Absent: systolic murmur, diastolic murmur, rubs, gallop, clicks GI/Abdominal exam: Present: soft, normal bowel sounds. Absent: distended, tenderness, guarding, rebound, rigid Extremities exam: Present: normal inspection, full ROM, normal capillary refill. Absent: tenderness, pedal edema, joint swelling, calf tenderness Back exam: Present: normal inspection Neurological exam: Present: alert, oriented X3, CN II-XII intact Psychiatric exam: Present: normal affect, normal mood Skin exam: Present: warm, dry, intact, normal color. Absent: rash Course Vital Signs 01/18/18 01/18/18 13:11 14:10 Temperature 98.3 F 99.8 F H Pulse Rate 96 86 Respiratory 18 18 Rate Blood Pressure 143/91 130/86 O2 Sat by Pulse 97 96 Oximetry - Reevaluation(s) Reevaluation #1: 01/18/18 15:00 Patient treated for significant abdominal pain and evaluated in the ER today as ago, that ER visit is reviewed Medical Decision Making - Medical Decision Making 47 male the ER for evaluation. Patient was essay for evaluation regarding rib pain abdominal pain. Patient has positive zoster, herpes zoster. Patient will be discharged home appropriately Disposition Clinical Impression: Shingles Disposition: HOME SELF-CARE Condition: Good Instructions: Shingles (ED) Prescriptions: Lidocaine 5% Patch [Lidoderm] 1 patch TOPICAL DAILY #7 patch predniSONE 50 mg PO DAILY #5 tab valACYclovir HCL [Valtrex] 1,000 mg PO BID #20 tab Is patient prescribed a controlled substance at d/c from ED?: No Referrals: [facility],Clinic [Primary Care Provider] - 1-2 days
[2018-01-18 14:10] VITALS: BP 130/86; PULSE 86; TEMP 99.8
== END 2018-01-18 14:26 | disposition home or self-care (01) ==
LOC: EC 12:34
DX: B02.9 Zoster without complications (principal); E11.9 Type 2 diabetes mellitus without complications; Z87.891 Personal history of nicotine dependence; Z79.4 Long term (current) use of insulin; Z88.8 Allergy status to other drugs, medicaments and biological substances
CPT/HCPCS: 99284; 96372; J1100

== ENCOUNTER 2018-11-28 04:21 | Emergency (ER) | payer OTHER ==
--- NOTE | 2018-11-28 04:29 | ED ---
Headache HPI - General Chief Complaint: Headache Stated Complaint: eye problem Time Seen by Provider: 11/28/18 04:28 Mode of arrival: ambulatory Limitations: no limitations - History of Present Illness Initial Comments: All is a 48-year-old diabetic male presents the ER today for evaluation of acute onset of eye pain. Patient reports the woke on morning with significan t pain in his left eye. He took his normal oral medications for diabetes and attempted to rest throughout the day. Patient reported that any time he open his eye he had severe pain in his left eye. Patient reports that even when trying to only open his right eye he would have pain in his left eye. He also noted that when he attempted to open his left eye he had significant blurred vision. Patient states that the pain worsened throughout the day, [facility]. He wanted to wait until tomorrow [facility] however the pain was unbearable tonight he was unable to sleep so he decided to walk to the emergency department because his vision was too bad to allow him to drive. Patient denies any history of glaucoma or family history of glaucoma. He denies any injury or trauma to the eye. He denies any foreign body sensation. Patient does follow with ophthalmology for corrective lenses and reports that his lenses were replaced within the past year. - Related Data Home Medications Medication Instructions Recorded Confirmed glipiZIDE [Glucotrol] 5 mg PO AC-BID 07/06/17 01/18/18 Insulin Glargine,Hum.rec.anlog 10 unit SQ DAILY 01/18/18 01/18/18 [Lantus Solostar] metFORMIN HCL 1,000 mg PO BID 01/18/18 01/18/18 Previous Rx's Medication Instructions Recorded Lidocaine 5% Patch [Lidoderm] 1 patch TOPICAL DAILY #7 patch 01/18/18 predniSONE 50 mg PO DAILY #5 tab 01/18/18 valACYclovir HCL [Valtrex] 1,000 mg PO BID #20 tab 01/18/18 Allergies Allergy/AdvReac Type Severity Reaction Status Date / Time guaifenesin Allergy Rash/Hives Verified 11/28/18 04:27 Review of Systems ROS Statement: Those systems with pertinent positive or pertinent negative responses have been documented in the HPI. ROS Other: All systems not noted in ROS Statement are negative. Past Medical History Past Medical History: Diabetes Mellitus, Hyperlipidemia Additional Past Medical History / Comment(s): boarderline high bp , kidney stone, migraines, History of Any Multi-Drug Resistant Organisms: None Reported Past Surgical History: Orthopedic Surgery Additional Past Surgical History / Comment(s): left shoulder, Past Anesthesia/Blood Transfusion Reactions: No Reported Reaction Past Psychological History: No Psychological Hx Reported Smoking Status: Former smoker Past Alcohol Use History: Occasional Past Drug Use History: None Reported - Past Family History Father Family Medical History: Hypertension Mother Family Medical History: Hypertension General Exam - General Exam Comments Initial Comments: Physical Exam GENERAL: Appears uncomfrotable HENT: Normocephalic, Atraumatic. EYES: Both eyes closed, tearing from both eyes Left eye firm to touch, conjunctiva is injected, pupil is 3-4mm fixed, cloudy - Tonometry pressure 27 Right eye pupil reactive EOMI PULMONARY: Unlabored respirations. CARDIOVASCULAR: RRR ABDOMEN: Obese, non-distended SKIN: Skin is clear with no lesions or rashes and otherwise unremarkable. : Deferred NEUROLOGIC: Patient is alert and oriented x3. Moving all extremities spontaneously MUSCULOSKELETAL: Normal extremities with adequate strength and full range of motion. No lower extremity swelling or edema. No calf tenderness. PSYCHIATRIC: Normal psychiatric evaluation Limitations: no limitations Course Vital Signs 11/28/18 04:25 Temperature 97.2 F L Pulse Rate 89 Respiratory 18 Rate Blood Pressure 164/103 O2 Sat by Pulse 98 Oximetry - Reevaluation(s) Reevaluation #1: Patient resting much more comfortably reports feeling less pain in his eye though he does still feel significant pressure. 11/28/18 06:22 Medical Decision Making - Medical Decision Making The patient was seen and evaluated upon arrival to the emergency department history and physical exam are concerning for an acute glaucoma. The patient's eye is injected, firm to the touch has mid fixed pupil and cornea that appears cloudy. Patient has loss of vision and is in too much pain to tolerate keeping his eyes open for a vision test. Morphine was ordered for pain management Attempts were made to test the pressure in the patient's eye however due to technical difficulties with the tonometer we were initially unsuccessful. Patient care was then discussed with ophthalmology on-call Dr. Ruelas who agrees that based on the history and physical exam findings the patient likely has an acute glaucoma. Recommends topical pilocarpine as well as by mouth Diamox. The time is now 5 AM, he will see the patient in his office at 7:30 AM at which time he will reevaluate and consider treatment with laser iridotomy if indicated. Patient received medications and reported discomfort was improving in his eye. Patient walked here and will be given a cab ride to ophthalmology clinic as well as a voucher for a Ride home from the ophthalmology clinic. 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
[2018-11-28] MEDS ORDERED: PROPARACAINE 0.5% OPHTH DROPS 15 ML BTL LEFT EYE STA (04:42)
[2018-11-28] MEDS ORDERED: MORPHINE SULFATE 4 MG/ML SYRINGE IVP STA (04:48)
[2018-11-28] MEDS ORDERED: acetaZOLAMIDE 250 MG TAB PO STA (05:12)
[2018-11-28] MEDS ORDERED: PILOCARPINE 2% OPHTH DROPS 15 ML BTL LEFT EYE SCH (05:15)
[2018-11-28 07:06] VITALS: BP 133/94; PULSE 82; RESP 19; TEMP 98.5
[2018-11-28] MEDS ORDERED: acetaZOLAMIDE 250 MG TAB PO SCH (09:00)
== END 2018-11-28 07:05 | disposition home or self-care (01) ==
LOC: EC 04:21
DX: E11.39 Type 2 diabetes mellitus with other diabetic ophthalmic complication (principal); H42 Glaucoma in diseases classified elsewhere; Z79.4 Long term (current) use of insulin; Z88.8 Allergy status to other drugs, medicaments and biological substances; Z87.891 Personal history of nicotine dependence
CPT/HCPCS: 96374; 99283

== ENCOUNTER 2021-10-21 10:18 | Day surgery (SDC) | payer OTHER ==
[2021-10-20 11:06] VITALS: BMI 39.3
[2021-10-21] MEDS: LACTATED RINGERS 1,000 ML IV SCH ×2 (11:11→11:47)
[2021-10-21 11:12] VITALS: RESP 16; TEMP 98.3
[2021-10-21 11:19] LABS: Glucose,Whole Blood 94 mg/dL (75-99)
[2021-10-21] MEDS ORDERED: PROPOFOL 10 MG/ML 20 ML VIAL IV ONE (11:48)
--- NOTE | 2021-10-21 12:08 | P.PCN ---
Date of Procedure: 10/21/21 Procedure(s) Performed: BRIEF HISTORY: Patient is a 50-year-old pleasant male scheduled for an elective colonoscopy as a part of screening for colorectal neoplasia. PROCEDURE PERFORMED: Colonoscopywith biopsy and snare polypectomy. PREOPERATIVE DIAGNOSIS: Screening for colon cancer. IV sedation per Anesthesia. PROCEDURE: After informed consent was obtained, the patient, was brought into the endoscopy unit. IV sedation was administered by Anesthesia under continuous monitoring. Digital rectal examination was normal. Initially the Olympus CF-160 flexible video colonoscope was then inserted in the rectum, gradually advanced into the cecum without any difficulty. Careful examination was performed as the scope was gradually being withdrawn. Ileocecal valve and the appendiceal orifice were visualized and appeared normal. Prep was excellent. Mucosa of the cecum, ascending colon, he can have a repeat colonoscopy in 5 yearsappeared normal. In the transverse colon there was a 3 mm sessile polyp removed by cold biopsy. In the descending colon there was a 6 mm polyp removed by snare polypectomy. In the distal sigmoid colon there was a 5 mm polyp removed by snare polypectomy. Rest of the transverse colon, descending colon, sigmoid colon, and rectum appeared normal. Retroflexion was performed in the rectum and no lesions were seen. The patient tolerated the procedure well. IMPRESSION: 3 mm transverse colon polyp status post cold biopsy 6 mm descending colon polyp status post polypectomy 5 mm sigmoid colon polyp status post polypectomy RECOMMENDATIONS: Findings of this examination were discussed with the patient as well as her family. He was advised to follow with the biopsy results. If the biopsy reveals adenoma with the biopsy reveals adenoma.
[2021-10-21 12:32] VITALS: BP 145/96; PULSE 68
== END 2021-10-21 12:40 | disposition home or self-care (01) ==
LOC: ORWHC2ENDO 10:18
PROVIDERS: ATTEND Internal Medicine Gastroenterology
DX: Z12.11 Encounter for screening for malignant neoplasm of colon (principal); D12.3 Benign neoplasm of transverse colon; D12.4 Benign neoplasm of descending colon; D12.8 Benign neoplasm of rectum; Z79.84 Long term (current) use of oral hypoglycemic drugs; Z79.4 Long term (current) use of insulin; E78.5 Hyperlipidemia, unspecified; G47.33 Obstructive sleep apnea (adult) (pediatric); E11.9 Type 2 diabetes mellitus without complications; E66.01 Morbid (severe) obesity due to excess calories; Z68.39 Body mass index [BMI] 39.0-39.9, adult; Z98.890 Other specified postprocedural states; Z88.8 Allergy status to other drugs, medicaments and biological substances
CPT/HCPCS: 88305; 45380; 45385; J2704